=== PATIENT | female | born 1980 | race Caucasian/White ===

== ENCOUNTER 2018-10-06 15:04 | Emergency (ER) | payer OTHER ==
[2018-10-06 18:28] LABS: URINE BLOOD (Dip) POC Negative (NEGATIVE); URINE GLUCOSE (Dip) POC Negative (NEGATIVE); URINE KETONES (Dip) POC 1+ (NEGATIVE); URINE LEUKOCYTE EST (Dip) POC Negative (NEGATIVE); URINE NITRITE (Dip) POC Negative (NEGATIVE); URINE TOTAL PROTEIN POC Negative (NEGATIVE)
== END 2018-10-06 21:24 | disposition left against medical advice (07) ==
LOC: FTE 15:04
DX: R10.2 Pelvic and perineal pain (principal)
CPT/HCPCS: 81003; 81025; 99282